=== PATIENT | male | born 1950 | race Hispanic/Latino ===

== ENCOUNTER 2020-08-10 10:58 | Day surgery (SDC) | payer OTHER ==
[2020-08-01 14:00] LABS: BASOPHILS % (AUTO) 0.8 % (0.0-5.0); EOSINOPHILS % (AUTO) 3.7 % (0.0-8.0); HEMATOCRIT 42.4 % (42-54); LYMPHOCYTES % (AUTO) 42.2 % (21.0-51.0); MEAN CORPUSCULAR HEMOGLOBIN 29.9 pg (27.0-33.0); MEAN CORPUSCULAR VOLUME 90.6 fL (79-99); MONOCYTES % (AUTO) 8.1 % (3.0-13.0); NEUTROPHILS % (AUTO) 44.7 % (40.0-77.0); PLATELET COUNT (AUTO) 219 K/uL (130-400); RED BLOOD CELL COUNT(AUTO) 4.68 MIL/uL (4.50-6.20); RED CELL DISTRIBUTION WIDTH 12.9 % (11.0-15.5); WHITE BLOOD COUNT (AUTO) 6.1 K/uL (4.8-10.8)
[2020-08-01 14:09] LABS: CREATININE 0.9 mg/dL (0.5-1.5); POTASSIUM 4.1 mmol/L (3.5-5.1)
[2020-08-01 14:16] LABS: PROTHROMBIN TIME 10.9 SEC (9.6-11.6)
[2020-08-10] VITALS (18 sets, daily range): BP systolic 103–134; BP diastolic 51–89
[~2020-08-10] VITALS: Ht 175.3 cm; Wt 78.7 kg
[~2020-08-10 10:58] MED LIST: ASCO100031 PO; CEFAZOLIN SODIUM 1 GM VIAL IVP SCH; MAGN500C15 PO; METO-408 PO; MULT-1296 PO; OMEP40CA13 PO; SODIUM CHLORIDE 0.9% 1000ML 1,000 ML IV SCH; VITA-395 PO
[2020-08-10] MEDS ORDERED: LACTATED RINGERS 1000ML 1,000 ML IV ONE (10:59)
[2020-08-10] MEDS ORDERED: CEFAZOLIN SODIUM 1 GM VIAL ONE (12:11)
[2020-08-10] MEDS ORDERED: LIDOCAINE PF 2% 5ML ABBOJECT ONE (13:22)
[2020-08-10] MEDS ORDERED: SUCCINYLCHOLINE CHLORIDE 20 MG/ML 10 ML VIAL ONE (13:22)
[2020-08-10] MEDS ORDERED: FENTANYL CITRATE PF 50 MCG/1 ML 2ML VIAL ONE (13:23)
[2020-08-10] MEDS ORDERED: PROPOFOL 10 MG/ML 20ML VIAL IV ONE ×2 (13:23→15:01)
[2020-08-10] MEDS ORDERED: ROCURONIUM 10MG/1ML SYR 10 MG/ML ML ONE (13:23)
[2020-08-10] MEDS ORDERED: EPHEDRINE SULFATE 50 MG/ML AMPULE ONE (13:47)
[2020-08-10] MEDS ORDERED: GLYCOPYRROLATE 1 MG/5 ML SYRINGE ONE (13:54)
[2020-08-10] MEDS ORDERED: KETOROLAC TROMETHAMINE 30MG/ML ONE (15:31)
[2020-08-10] MEDS ORDERED: MEPERIDINE-PF 25 MG/ML SYG ONE ×2 (15:31→16:10)
[2020-08-10] MEDS ORDERED: NEOSTIGMINE 5MG/5ML SYR IV ONE (15:31)
== END 2020-08-10 18:00 | disposition home or self-care (01) ==
LOC: DAH 10:58
PROVIDERS: ATTEND Surgery
DX: K40.21 Bilateral inguinal hernia, without obstruction or gangrene, recurrent (principal); I10 Essential (primary) hypertension; K21.9 Gastro-esophageal reflux disease without esophagitis; Z20.822 Contact with and (suspected) exposure to COVID-19; Z79.01 Long term (current) use of anticoagulants; Z79.899 Other long term (current) drug therapy
CPT/HCPCS: 36415; 49650; 80048; 85025; 85610; 93005; A4215 ×2; A4221; A4222; A4223; A4344; A4600; A4649 ×2; A4663; C1769 ×4; C1781 ×2; C9803; G0168; J0330; J0690; J1885; J2001; J2175 ×2; J2704 ×2; J2710; J3010; J3490 ×2; J7030 ×2; J7120; U0003

== ENCOUNTER → 2020-09-06 | Outpatient (CLI) | payer OTHER ==
[~2020-09-06] MED LIST changes: -CEFAZOLIN SODIUM 1 GM VIAL IVP SCH; -OMEP40CA13 PO; +OMEP40CA21 PO; -SODIUM CHLORIDE 0.9% 1000ML 1,000 ML IV SCH
== END | disposition home or self-care (01) ==
LOC: RAH 13:14
PROVIDERS: ATTEND Surgery
DX: N50.82 Scrotal pain (principal); I86.1 Scrotal varices; R10.2 Pelvic and perineal pain; N40.0 Benign prostatic hyperplasia without lower urinary tract symptoms
CPT/HCPCS: 76857; 76870

== ENCOUNTER → 2021-06-07 | Outpatient (CLI) | payer OTHER ==
[~2021-06-07] MED LIST changes: -MAGN500C15 PO; +MAGN500C4 PO
== END | disposition home or self-care (01) ==
LOC: SHCH 11:27
PROVIDERS: ATTEND Internal Medicine Cardiovascular Disease
DX: I07.1 Rheumatic tricuspid insufficiency (principal); I10 Essential (primary) hypertension
CPT/HCPCS: 93306